=== PATIENT | female | born 1995 | race Caucasian/White ===

== ENCOUNTER 2019-10-25 22:51 | Emergency (ER) | payer BC, SELFPAY ==
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
[2019-10-25 23:19] VITALS: BP 134/93; PULSE 97; RESP 16; TEMP 37; O2SAT 100; BMI 36.3
--- NOTE | 2019-10-25 23:21 | XR_ITS ---
WS: [id number] NASAL BONES TECHNIQUE: Lateral and Avendaño' view have been performed. HISTORY: injury COMPARISON: None available. Nasal bones are intact. No fracture or dislocation. There is mild reverse S-shaped curvature of the nasal septum. No air-fluid levels in the maxillary si nuses. Visualized orbits are intact. XR/XR nasal bones min 3V [id number] IMPRESSION: No nasal bone fracture.
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
[2019-10-25 23:33] VITALS: BP 128/88; PULSE 105; RESP 16; O2SAT 98
[2019-10-26] VITALS: BP 112/76; PULSE 104; RESP 14; O2SAT 98
== END 2019-10-26 00:03 | disposition home or self-care (01) ==
PROVIDERS: Emergency Provider Nurse Practitioner Family
DX: S00.33XA Contusion of nose, initial encounter (principal); W50.0XXA Accidental hit or strike by another person, initial encounter; Z87.891 Personal history of nicotine dependence
CPT/HCPCS: 12345; 70160; 99281; 99282